=== PATIENT | female | born 1935 | race Caucasian/White ===

== ENCOUNTER → 2017-03-11 | Outpatient (CLI) | payer OTHER ==
[~2017-03-11] MED LIST: ALLOPURINOL; CITRACIL PO; FERROUS SULFATE; MELATONIN; METOPROLOL SUCC25 MG PO; MULTIVITAMIN PO; ONE DAILY1 EAC1 PO; TYLENOL EXTRA500 MG PO; Z CITRACAL; Z.0.COLACE100 MG PO; Z.0.NORCO 7.5-3251 E; Z.0.OXYBUTYNIN CHLOR PO; Z.1.AMOXICILLIN500 M PO; [UNRECOGNIZED DRUG - OTHER]; [UNRECOGNIZED DRUG - OTHER]; [UNRECOGNIZED DRUG - OTHER] PO
--- NOTE | 2017-03-11 14:51 | Diagnostic Imaging Report ---
PROCEDURE: Frontal and lateral views of the chest. COMPARISON: 06/30/15 INDICATIONS: COUGH, FLU FINDINGS: Lines/tubes: None. Lungs: The lungs are well inflated and clear. There is no evidence of pneumonia or pulmonary edema. Pleura: There is no pleural effusion or pneumothorax. Heart and mediastinum: The heart and the mediastinum are normal. Aorta is mildly calcified and tortuous. Bones: No acute bony abnormality. IMPRESSION: No acute cardiopulmonary disease. No change from prior exam. Dictated by: Martin Peck M.D. on 03/11/2017 at 14:59 Electronically approved by: Martin Peck M.D. on 03/11/2017 at 14:59
== END ==
LOC: RAD 14:20
PROVIDERS: ATTEND Internal Medicine
DX: J20.9 Acute bronchitis, unspecified (principal)
CPT/HCPCS: 71020

== ENCOUNTER 2017-07-19 15:53 | Emergency (ER) | payer OTHER ==
[~2017-07-19] VITALS: Ht 160 cm; Wt 75.3 kg
--- OUTSIDE RECORDS SUMMARY | 2017-07-19 15:57 | XMS REPORT ---
Author Author [facility] Address Unknown Phone Unavailable Care Team Providers Care Manufacturing Technology Professor Name Role Phone JOSÉ MIGUEL ORTIZ Unavailable Unavailable Problems This patient has no known problems. Allergies, Adverse Reactions, Alerts This patient has no known allergies or adverse reactions. Medications This patient has no known medications. Results Test Description Test Time Test Comments Text Results Atomic Results Result Comments CHEST 2 VIEWS [place] [address] Patient Name: ADE BUCK MR #: [id number] : 1935 Age/Sex: 81/F Req #: [id number] Adm Physician: Ordered by: JOSÉ MIGUEL ORTIZ MD Report #: [id number] Location: RAD Room/Bed: Procedure: [id number] DX/CHEST 2 VIEWS Exam Date: 03/11/17 Exam Time: 1440 REPORT STATUS: Signed PROCEDURE: Frontal and lateral views of the chest. COMPARISON: 06/30/15 INDICATIONS: COUGH, FLU FINDINGS: Lines/tubes: None. Lungs: The lungs are well inflated and clear. There is no evidence of pneumonia or pulmonary edema. Pleura: There is no pleural effusion or pneumothorax. Heart and mediastinum: The heart and the mediastinum are normal. Aorta is mildly calcified and tortuous. Bones: No acute bony abnormality. IMPRESSION: No acute cardiopulmonary disease. No change from prior exam. Dictated by: Martin eVntura M.D. on 03/11/2017 at 14:59 Electronically approved by: Martin Ventura M.D. on 03/11/2017 at 14:59 Dictated By: MARTIN VENTURA MD [id number] Transcribed By: SUZANNE on 03/11/17 2882 COPY TO: JOSÉ MIGUEL ORTIZ MD
--- NOTE | 2017-07-19 18:03 | Diagnostic Imaging Report ---
History: Fall, pain Comparison studies:None Technique: Axial images were obtained from the brain, face and cervical spine. Coronal and sagittal reconstructions obtained from the axial data. Intravenous contrast: None Findings: Head CT: Scalp/skull: No abnormalities. No fractures, blastic or lytic lesions. Extra-axial spaces: No masses. No fluid collections. Brain sulci: Appropriate for age. Ventricles: Normal in size and configuration. No hydrocephalus. Parenchyma: Scattered and confluent hypodensities of the periventricular and deep white matter. Small chronic lacunar infarcts at the right striatocapsular region, left caudate head and left thalamus. No masses, hemorrhage, acute or chronic cortical vascular insults. Sellar/suprasellar region: No abnormalities Craniocervical junction: Patent foramen magnum. No Chiari one malformation. Atherosclerotic calcifications of the carotid siphons and right intradural vertebral artery. Maxillofacial CT: Soft tissues: Right premaxillary and preseptal soft tissue swelling. Bones: Right orbital floor fracture as described below, no other fractures are seen. Orbits: Acute mildly inferior displaced fracture of the right orbital floor with involvement of the infraorbital canal and herniated extraconal fat. Anterior orbital rim appears intact Normal appearance of the extraocular muscles. Bilateral cataract surgery changes. Paranasal sinuses: Air-fluid level at the right maxillary sinus, likely. The remaining paranasal sinuses are clear. Cervical spine CT: Fractures: None. Soft tissues: No gross abnormalities. Atlantoaxial articulation: Degenerative changes without acute abnormality. Alignment: Normal lordosis. No scoliosis. Cervicomedullary junction: No abnormalities. The foramen magnum is patent. Vertebrae: No infection or neoplasm. Degenerative changes: At C3-4, left facet hypertrophy results in moderate left foraminal narrowing. At C4-5, left uncinate process and facet hypertrophy results in moderate left foraminal narrowing. At C5-6 bilateral uncinate process hypertrophy and left facet hypertrophy results in mild canal stenosis, mild right and severe left foraminal narrowing. Disc degeneration with decreased intervertebral space and sclerotic changes from C5 through C7. Incidental findings: Not. Impression: Head CT: 1. No acute intracranial abnormality.. 2. Moderate chronic microvascular ischemic changes of the white matter. Facial CT: 1. Small right orbital floor blowout fracture with mild herniated extraconal fat and hemorrhagic opacification of the maxillary sinus. Normal appearance of the extraocular muscle musculature. 2. Right premaxillary and preseptal soft tissue swelling. Cervical spine CT: 1. No acute cervical abnormalities. 2. Cannot exclude ligament, spinal cord and or vascular abnormalities on the basis of this examination. Signed by: DR Joe Joseph M.D. on 07/19/2017 5:59 PM
--- NOTE | 2017-07-19 18:19 | Diagnostic Imaging Report ---
PROCEDURE:X-RAY RIGHT ELBOW, COMPLETE COMPARISON:None. INDICATIONS:FALL, RIGHT ELBOW PAIN FINDINGS: Generalized osteopenia, which limits evaluation of the bony structures. Linear lucency traversing the medial epicondyle of the distal humerus, with cortical step-off . A linear lucency is also noted in the lateral view extending from the anterior to the posterior aspect of the distal humerus, with cortical step-off, consistent with an acute, minimally displaced fracture. Marked elevation of the anterior fat-pad. Other bony structures are intact. Mild soft tissue swelling in the distal humerus. No lytic or blastic lesions. CONCLUSION: Acute, oblique minimally displaced fracture of the distal humerus, at the level of the epicondyles Associated likely effusion/hemarthrosis Ye Diaz M.D. Dictated by: Ye Diaz M.D. on 07/19/2017 at 18:20 Electronically approved by: Ye Diaz M.D. on 07/19/2017 at 18:20
[2017-07-19] MEDS ORDERED: TETANUS/DIPHTHERIA TOX ADULT 0.5 ML SYR IM ONE (19:00)
[2017-07-19] MEDS ORDERED: BACITRACIN ZINC 0.9GM TP ONE (19:00)
--- NOTE | 2017-07-19 19:38 | Diagnostic Imaging Report ---
EXAMINATION: CHEST SINGLE (PORTABLE) INDICATION: \S\fall \S\[id number] \S\[id number] COMPARISON: None FINDINGS: AP view TUBES and LINES: None. LUNGS: Lungs are well inflated. Lungs are clear. There is no evidence of pneumonia or pulmonary edema. PLEURA: No pleural effusion or pneumothorax. HEART AND MEDIASTINUM: The cardiomediastinal silhouette is unremarkable. Aorta is mildly calcified and tortuous. BONES AND SOFT TISSUES: No acute osseous lesion. Soft tissues are unremarkable. UPPER ABDOMEN: No free air under the diaphragm. IMPRESSION: No acute thoracic abnormality. Signed by: Dr. Martin Peck MD on 07/19/2017 7:34 PM
[2017-07-19 21:32] VITALS: BP 139/95
[2017-07-19] MEDS ORDERED: TYLENOL WITH C1 EACH PO (21:32)
== END 2017-07-19 21:55 | disposition home or self-care (01) ==
LOC: ER 15:53
DX: S42.411A Displaced simple supracondylar fracture without intercondylar fracture of right humerus, initial encounter for closed fracture (principal); S01.111A Laceration without foreign body of right eyelid and periocular area, initial encounter; S51.811A Laceration without foreign body of right forearm, initial encounter; W01.10XA Fall on same level from slipping, tripping and stumbling with subsequent striking against unspecified object, initial encounter; Y92.481 Parking lot as the place of occurrence of the external cause; S02.31XA Fracture of orbital floor, right side, initial encounter for closed fracture; Z23 Encounter for immunization; Z87.891 Personal history of nicotine dependence
CPT/HCPCS: 70450; 70486; 71045; 72125; 90471; 90714; 99284

== ENCOUNTER → 2017-10-25 | Day surgery (SDC) | payer OTHER ==
[2017-10-21 15:02] LABS: BASOPHILS % 0.7 % (0.0-1.0); EOSINOPHILS # (AUTO) 0.2 (0.0-0.4); EOSINOPHILS % 4.1 % (0.0-6.0); HEMATOCRIT 33.1 % (34.2-44.1); HEMOGLOBIN 11.2 g/dL (12.0-16.0); LYMPHOCYTES # (AUTO) 1.2 (1.0-3.2); LYMPHOCYTES % 21.1 % (18.0-39.1); MEAN CORPUSCULAR HEMOGLOBIN 30.9 pg (28-32); MEAN CORPUSCULAR HGB CONC 33.8 g/dL (31-35); MEAN CORPUSCULAR VOLUME 91.4 fL (81-99); MONOCYTES # (AUTO) 0.6 (0.2-0.8); MONOCYTES % 10.4 % (4.4-11.3); NEUTROPHILS # (AUTO) 3.7 (2.1-6.9); NEUTROPHILS % 63.4 % (38.7-80.0); PLATELET COUNT 206 x10e3/uL (140-360); RED BLOOD COUNT 3.62 x10e6/uL (3.6-5.1); RED CELL DISTRIBUTION WIDTH 12.6 % (11.7-14.4)
[~2017-10-25] MED LIST changes: +AMLODIPINE BES2.5 MG PO; +CEFTRIAXONE SOD 1 GM VIAL ONE; +CITRACAL + D E1 EACH PO; +DEXAMETHASONE SOD PHOS INJ 4 MG/ML VIAL IV ONE; +EPHEDRINE SULFATE INJ 50 MG/10 ML SYR IV ONE; +FENTANYL CITRATE/PF 100MCG/2 ML INJ ONE; +IOPAMIDOL 300MG/ML 50ML INFUS..BTL IV ONE; +LIDOCAINE HCL 2% LOCAL INJ 5 ML SDV VIAL INJ ONE; +ONDANSETRON HCL INJ 2 MG/ML VIAL IV ONE; +PROPOFOL IV EMULSION 10 MG/ML 20 ML VIAL IV ONE; +SEVOFLURANE INHAL SOLN 250 ML PEN BTL INH ONE; +TYLENOL WITH C1 EACH PO; +VITAMIN B-121000 MCG PO; +VITAMIN D3400 UNI1 PO
--- NOTE | 2017-10-25 09:03 | Diagnostic Imaging Report ---
PROCEDURE:X-RAY ABDOMEN - KUB COMPARISON:01/16/2016. INDICATIONS:CALCULUS OF KIDNEY FINDINGS: No suspicious calcifications project over the renal shadows. Multiple left pelvic calcifications are again noted which likely reflect phleboliths. Bilateral pelvic sidewall surgical clips along with right upper quadrant surgical clips. Bowel gas pattern is nonobstructive. Round-crescentic calcifications project over the left upper quadrant which may reflect a splenic artery aneurysm. Regional skeletal structures are intact with partial visualization of left hip arthroplasty. Associated degenerative changes of the left sacroiliac joint. Mild lumbar spine degenerative disc changes. CONCLUSION: No plain film evidence of urolithiasis. Nonobstructive bowel gas pattern. 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 CT angiography of the abdomen and pelvis may be obtained for further evaluation. Dictated by: Vidal Mann M.D. on 10/25/2017 at 7:17 Electronically approved by: Vidal Mann M.D. on 10/25/2017 at 7:17
--- NOTE | 2017-12-20 15:53 | Operative Report ---
DATE OF PROCEDURE: October 25, 2017 PREOPERATIVE DIAGNOSIS: Left nephrolithiasis. POSTOPERATIVE DIAGNOSIS: Left nephrolithiasis. PROCEDURE PERFORMED: 1. Staged left-sided extracorporeal shockwave lithotripsy. 2. Supervision of fluoroscopy. No radiologist present. ANESTHESIA: General. COMPLICATIONS: None. CLINICAL SUMMARY: Renny Espino is an 82-year-old woman with nephrolithiasis. She is brought for management. She is aware of the risks of bleeding, infection, injury to adjacent structures, need for additional procedures and elected proceed. OPERATIVE PROCEDURE IN DETAIL: Informed consent was verified. Renny Espino was properly identified and taken to the operating room and placed on the lithotripsy table in supine position. Anesthesia was uneventfully begun. The patient's upper caliceal 6 mm stone and lower caliceal 5 mm stones were localized with biplanar fluoroscopy. Total of 2500 shocks were delivered splitting them among the 2 stones. The patient was then uneventfully reversed from anesthesia and taken to the recovery room in stable condition. No complications during the procedure. She tolerated the procedure well. Plans will be to return the patient to the operating room in several weeks to perform a right versus left ESWL with possible cystoscopy and retrogrades at that same time. Job#: [id number]
--- OUTSIDE RECORDS SUMMARY | 2017-12-21 23:57 | XMS REPORT | Continuity of Care Document ---
Author Author [facility] Organization [facility] Address [address] [place] [address] Phone Unavailable Care Team Providers Care Observation Nurse Name Role Phone JOSÉ MIGUEL ORTIZ MD PCP Insurance Providers Guarantor Renny Espino Address [address] [address] Email PTDECLINED Payer [facility] Policy Number [id number] Subscriber's Name Darell Espinoan Kings Relationship 18 Self / Same As Patient Group Number [id number] Group Name [facility] - Medicare Advantage Divis Effective Date 17 Advance Directives Directive Response Recorded Date/Time Does the patient have an advance directive? Yes 12/29/11 4:19pm If yes, is advance directive on file with [facility]? Yes 07/19/17 5:00pm If not on file with [facility] will patient provide a copy? No 07/19/17 5:00pm Do you have a Directive to Physician? No 07/19/17 5:00pm Do you have a Medical Power of Paratransit Operator? No 07/19/17 5:00pm Do you have an out of hospital Do Not Resuscitate Order? No 07/19/17 5:00pm Do you have any special needs we should be aware of? No 07/19/17 5:00pm Do you have a support person here with you today? Yes 07/19/17 5:00pm Did patient receive Notice of Privacy Practices? Yes 07/19/17 5:00pm Did patient receive patient rights and responsibilities? Yes 07/19/17 5:00pm Problems Medical Problem Onset Date Status Contusion of right knee Unknown Acute Medications Current Home Medications Medication Dose Units Route Directions Days Qty Instructions Start Date Acetaminophen (Tylenol Extra Strength) 500 Mg Tablet 1,000 Mg Oral Daily Acetaminophen With Codeine (Tylenol With Codeine #3 Tablet) 1 Each Tablet 300 Mg Oral Every 6 Hours as needed for Pain Citracil 1 Tab Oral Daily Metoprolol Succinate 25 Mg Tab.er.24h 25 Mg Oral Daily Multivitamin (One Daily) 1 Each Tablet 1 Tab Oral Daily Past Home Medications Medication Directions Ordered Status Allopurinol , 100 Mg Daily Discontinued Amoxicillin Trihydrate (Amoxicillin) 500 Mg Capsule, 500 Mg Oral Twice A Day Discontinued Calcium Cmb 2/D3/Min Cmb34/Gen (Citracal + Bone Density Tablet) 1 Each Tablet, Discontinued Docusate Sodium (Colace) 100 Mg Capsule, 100 Mg Oral Every 6-8 Hours as needed Discontinued Ferrous Sulfate , Discontinued Hydrocodone Bit/Acetaminophen ([place] 7.5-325 Tablet) 1 Each Tablet, Discontinued Hydrocodone Bit/Acetaminophen (Vicodin Hp 10-660 Mg Tablet) 1 Each Tablet, 1 Tab Oral Every 4-6 Hours as needed Discontinued Melatonin , Discontinued Multivitamin , Oral Daily Discontinued Oxybutynin Chloride 5 Mg Tablet, 5 Mg Oral Daily Discontinued Softner , 100 Mg Discontinued Social History Social History Problem Response Recorded Date/Time Onset Date Status Hx Psychiatric Problems No 12/29/2011 4:19pm Not Applicable Not Applicable Smoking Status Start Date Stop Date Never Smoker Hospital Discharge Instructions No hospital discharge instruction information available. Plan of Care Discharge Date 07/19/17 9:55pm Disposition HOME, SELF-CARE Condition at Discharge Stable Instructions/Education Provided Splint/Cast Splint/Cast Care Fractures - Humerus Fractures - Orbital RICE Therapy Prescriptions See Medication Section Referrals ANGELY KING MD Order Date: Call for an appointment Address: [address] [place] [address] [address] [place], [place] [id number] Additional Instructions/Education Keep your injured extremity elevated above your heart, use ice packs for 15 to 20 minutes every 1-2 hours. This will help decrease pain and swelling. Take Regular Tylenol every 4-6 hours as needed for pain. If prescribed pain medication on discharge, take the pain medication as prescribed and adhere to the warnings given for pain medication such as no swimming, driving operating heavy machinery, drinking or mixing with other medications that can interact with the narcotic. Follow up with the Orthopedic referral physician listed, call next business day to schedule your follow-up appointment. Return to the Emergency Department for any shortness of breath, increased pain injured extremity, discoloration of extremity, decreased circulation of extremity, or any new concerns. You must follow up with your [facility] due to the orbital fracture. I gave you an Orthopedic Physician for the elbow fracture to follow up with upon making your appointment. Functional Status No functional status information available. Allergies, Adverse Reactions, Alerts Allergen Type Severity Reaction Status Last Updated NSAIDS (Non-Steroidal Anti-Inflamma Allergy Unknown Active 01/16/16 Morphine Allergy Unknown Active 01/16/16 Aspirin Allergy Mild HIVES Active 09/01/09 ANTIHISTAMINES Allergy Unknown Active 01/16/16 ANTIHISTIMINES Allergy Unknown Active 07/19/17 PLASTIC TAPE Allergy Mild RASH Active 09/01/09 Immunizations No immunization information available. Vital Signs Acute Vital Signs Vital Response Date/Time Temperature (Fahrenheit) 98.2 degrees F (97.6 - 99.5) 07/19/2017 9:32pm Pulse Pulse Rate (adult) 74 bpm (60 - 90) 07/19/2017 9:32pm Respiratory Rate 19 bpm (12 - 24) 07/19/2017 9:32pm Blood Pressure 139/95 mm Hg 07/19/2017 9:32pm Height 5 ft 3 in 07/19/2017 4:34pm Weight 166 lb 07/19/2017 4:34pm Body Mass Index 29.4 kg/m^2 07/19/2017 4:34pm Results No relevant diagnostic test, laboratory data and/or discharge summary information available. Procedures Procedure Status Date Provider(s) X-ray of chest, two views Active 03/11/17 JOSÉ MIGUEL ORTIZ MD Computed tomography of brain without radiopaque contrast Active 07/19/[address] maxillofacial area wo contrast Active 07/19/17 AZEB ROSE MD Computed tomography of cervical spine without contrast Active 07/19/17 AZEB ROSE MD Encounters Encounter Location Arrival/Admit Date Discharge/Depart Date Attending Provider Departed Emergency Room [facility] 07/19/17 3:53pm 9:55pm AZEB ROSE MD Registered Clinic [facility] 03/11/17 2:20pm JOSÉ MIGUEL ORTIZ MD
== END | disposition home or self-care (01) ==
LOC: OR 05:01
PROVIDERS: ATTEND Urology
DX: N20.0 Calculus of kidney (principal); I10 Essential (primary) hypertension; E78.5 Hyperlipidemia, unspecified; M19.019 Primary osteoarthritis, unspecified shoulder; Z88.6 Allergy status to analgesic agent; Z88.8 Allergy status to other drugs, medicaments and biological substances; Z91.048 Other nonmedicinal substance allergy status; Z01.810 Encounter for preprocedural cardiovascular examination; Z01.812 Encounter for preprocedural laboratory examination; Z90.710 Acquired absence of both cervix and uterus; Z96.642 Presence of left artificial hip joint; Z96.651 Presence of right artificial knee joint; Z85.42 Personal history of malignant neoplasm of other parts of uterus; Z87.891 Personal history of nicotine dependence
CPT/HCPCS: 36415; 50590; 74018; 85025; 93005; J0696; J1100; J2001; J2405

== ENCOUNTER → 2017-11-18 | Day surgery (SDC) | payer OTHER ==
[~2017-11-18] MED LIST changes: +ATROPINE SULFATE 1 MG/ML VIAL ONE; +DESFLURANE 240 ML BTL INH ONE; -DEXAMETHASONE SOD PHOS INJ 4 MG/ML VIAL IV ONE; +DEXAMETHASONE SOD PHOS INJ 4 MG/ML VIAL ONE; -EPHEDRINE SULFATE INJ 50 MG/10 ML SYR IV ONE; +EPHEDRINE SULFATE INJ 50 MG/10 ML SYR ONE; +LIDOCAINE HCL 2% JELLY 5 ML TUBE ONE; -LIDOCAINE HCL 2% LOCAL INJ 5 ML SDV VIAL INJ ONE; -ONDANSETRON HCL INJ 2 MG/ML VIAL IV ONE; +ONDANSETRON HCL INJ 2 MG/ML VIAL ONE; -PROPOFOL IV EMULSION 10 MG/ML 20 ML VIAL IV ONE; +PROPOFOL IV EMULSION 10 MG/ML 20 ML VIAL ONE; -SEVOFLURANE INHAL SOLN 250 ML PEN BTL INH ONE
[2017-11-18 08:50] VITALS: BP 132/65
--- NOTE | 2017-11-18 08:52 | Diagnostic Imaging Report ---
ABDOMEN-1VIEW (KUB) Clinical history: Preoperative Technique: AP view abdomen Comparison: 10/25/2017. Findings: Overlying bowel gas obscures visualization of stones. There are three 2-3 mm calcifications overlying the left lower pole kidney. Additional 3 mm calcification projects over the right mid kidney and 5 mm calcification projects over the right lower pole kidney. No calcifications projecting over the expected location of the ureters or bladders. Pelvic phleboliths are noted. Nonobstructive bowel gas pattern. Status post cholecystectomy. Surgical clips project over the pelvis bilaterally. Partially seen left hip arthroplasty. No acute bony findings. Degenerative changes of the lower lumbar spine. Impression: Bowel gas partially limits radiographic evaluation for stones. Bilateral calcifications projecting over the kidneys, measuring up to 3 mm on the left and 5 mm on the right, which may represent stones. Signed by: Dr. Feli Lucas MD on 11/18/2017 8:08 AM
--- NOTE | 2018-01-12 01:07 | Operative Report ---
DATE OF PROCEDURE: November 18, 2017 PREOPERATIVE DIAGNOSIS: Left nephrolithiasis. POSTOPERATIVE DIAGNOSIS: Left nephrolithiasis. OPERATIONS PERFORMED 1. Staged left-sided extracorporeal shock wave lithotripsy. 2. Supervision of fluoroscopy. No radiologist present. ANESTHESIA: General. COMPLICATIONS: None. CLINICAL SUMMARY: Renny Espino is an 82-year-old woman with bilateral nephrolithiasis, who is brought for staged procedure. She is aware of the risks of bleeding, infection, injury to adjacent structures, need for additional procedures, and elected to proceed. OPERATIVE PROCEDURE IN DETAIL: Informed consent was verified. Renny Espino was properly identified, taken to operating room, placed on the lithotripsy table in supine position. Anesthesia was uneventfully begun. The patient had a prior left ESWL, but has residual, but smaller stones now present in the upper pole and lower pole. We localized both stone regions with biplanar fluoroscopy and split the total of 3000 shocks between the 2 stone regions. Additional fragmentation was noted. The patient was then uneventfully reversed from anesthesia and taken to recovery room in stable condition. There were no complications to the procedure. She tolerated the procedure well. Explicit postoperative instructions were given. Will plan on returning the patient to the operating room. At which point in time, she will hopefully undergo a right ESWL, as well as cystoscopy and retrograde ureteropyelography. Job#: [id number] CQ cc:JOSÉ MIGUEL ORTIZ MD
== END | disposition home or self-care (01) ==
LOC: OR 05:15
PROVIDERS: ATTEND Urology
DX: N20.0 Calculus of kidney (principal); I10 Essential (primary) hypertension; I45.10 Unspecified right bundle-branch block; I49.9 Cardiac arrhythmia, unspecified; Z88.6 Allergy status to analgesic agent; Z88.8 Allergy status to other drugs, medicaments and biological substances; Z91.048 Other nonmedicinal substance allergy status; Z85.42 Personal history of malignant neoplasm of other parts of uterus
CPT/HCPCS: 50590; 74018; J0461; J0696; J1100; J2001; J2405

== ENCOUNTER → 2017-12-30 | Day surgery (SDC) | payer OTHER ==
[2017-12-26 17:20] LABS: BASOPHILS % 0.6 % (0.0-1.0); EOSINOPHILS # (AUTO) 0.2 (0.0-0.4); EOSINOPHILS % 2.9 % (0.0-6.0); HEMATOCRIT 36.1 % (34.2-44.1); HEMOGLOBIN 12.1 g/dL (12.0-16.0); LYMPHOCYTES # (AUTO) 1.9 (1.0-3.2); LYMPHOCYTES % 28.5 % (18.0-39.1); MEAN CORPUSCULAR HEMOGLOBIN 30.4 pg (28-32); MEAN CORPUSCULAR HGB CONC 33.5 g/dL (31-35); MEAN CORPUSCULAR VOLUME 90.7 fL (81-99); MONOCYTES # (AUTO) 0.6 (0.2-0.8); MONOCYTES % 9.1 % (4.4-11.3); NEUTROPHILS % 58.6 % (38.7-80.0); PLATELET COUNT 230 x10e3/uL (140-360); RED BLOOD COUNT 3.98 x10e6/uL (3.6-5.1); RED CELL DISTRIBUTION WIDTH 12.5 % (11.7-14.4)
[~2017-12-30] MED LIST changes: -ATROPINE SULFATE 1 MG/ML VIAL ONE; -CEFTRIAXONE SOD 1 GM VIAL ONE; -DESFLURANE 240 ML BTL INH ONE; -EPHEDRINE SULFATE INJ 50 MG/10 ML SYR ONE; -FENTANYL CITRATE/PF 100MCG/2 ML INJ ONE; +GENTAMICIN 80MG/NS 100 ML 100 ML IV ONE; -IOPAMIDOL 300MG/ML 50ML INFUS..BTL IV ONE; +IOPAMIDOL 610MG/1ML 300 MG/ML VIAL IV ONE; -LIDOCAINE HCL 2% JELLY 5 ML TUBE ONE; +LIDOCAINE HCL 2% LOCAL INJ 5 ML SDV VIAL INJ ONE; +SEVOFLURANE INHAL SOLN 250 ML PEN BTL ONE
--- NOTE | 2017-12-30 08:12 | Diagnostic Imaging Report ---
ABDOMEN-1VIEW (KUB) Clinical history: Pre-Op Technique: AP view abdomen Comparison: KUB 11/18/2017. Findings: Bowel gas partially obscures visualization of the kidneys. There are multiple bilateral renal calcifications, measuring up to 5 mm in the left upper pole, 4 mm in the left lower pole, 4 mm in the right lower pole, and 1-3 mm scattered throughout the right kidney. Some of the calcifications were obscured on KUB from 11/18/2017. No calcifications projecting over the expected location of the ureters or bladders. Pelvic phleboliths are noted. Nonobstructive bowel gas pattern. Abundant stool throughout the colon. Status post cholecystectomy. Surgical clips project over the pelvis bilaterally. Partially seen left hip arthroplasty. No acute bony findings. Degenerative changes of the lower lumbar spine. Impression: Bilateral calcifications projecting over the kidneys, measuring up to 5 mm on the left and 4 mm on the right, which may represent stones. Abundant stool throughout the colon. Signed by: Dr. Feli Lucas MD on 12/30/2017 8:08 AM
[2017-12-30 08:30] VITALS: BP 159/85
--- NOTE | 2018-02-08 01:24 | Operative Report ---
DATE OF PROCEDURE: December 30, 2017 PREOPERATIVE DIAGNOSES: 1. Right nephrolithiasis. 2. Microscopic hematuria. POSTOPERATIVE DIAGNOSES: 1. Right nephrolithiasis. 2. Microscopic hematuria. 3. Urethral stenosis. 4. Atrophic (senile) vaginitis. OPERATIONS PERFORMED: Note these were all staged procedures as part of a multistage, multistep process of managing the patient's urolithiasis. 1. Right-sided extracorporeal shock wave lithotripsy (separate procedure performed for the right nephrolithiasis). 2. Cystourethroscopy with bilateral ureteral catheterization and retrograde ureteropyelography (separate procedure performed for the microhematuria). 3. Interpretation of retrograde ureteropyelography. 4. Supervision of fluoroscopy, no radiologist present. 5. Pelvic examination under anesthesia. 6. Cystourethroscopy with calibration and dilation of urethral stenosis (separate procedure performed for the urethral stenosis). ANESTHESIA: General. COMPLICATIONS: None. CLINICAL SUMMARY: Renny Espino is an 82-year-old woman who underwent ESWL procedure twice to the left kidney recently. The patient is brought to the operating room for management of her right-sided stone. She is aware of the risks of bleeding, infection, injury to adjacent structures, need for additional procedures, and elected to proceed. OPERATIVE PROCEDURE IN DETAIL: Informed consent was verified. Renny Espino was properly identified, taken to the operating room, and placed on the lithotripsy table in supine position. Anesthesia was uneventfully begun. The patient's right nephrolithiasis specifically in the upper pole zaynab and the mid zaynab was localized with biplanar fluoroscopy. Total of 3000 shocks were distributed among them with some degree of fragmentation noted. The patient was carefully and gently repositioned in dorsal lithotomy position with all pressure points well padded. Her genitalia were prepared and draped in usual sterile fashion. The 22.5-Lao cystoscope sheath was attempted to be placed into the patient's urethra, however, the urethra was stenosed. The urethra was calibrated to approximately 16-Lao in size and was dilated progressively to 28-Lao in size. This last sound was held in place for several minutes to allow dilation. The cystoscope sheath was then reintroduced uneventfully. Panendoscopy of the urinary bladder revealed no suspicious mucosal lesions, no tumors, no stones, and no diverticula. Normally positioned and configured ureteral orifices were identified. A ureteral catheter was used to cannulate each ureter, and retrograde ureteral pyelograms were performed. Interpretation of retrograde ureteropyelography: Contrast was instilled in retrograde fashion bilaterally. The left side was unremarkable. We really could not visualize the small stones once contrast was injected. On KUB, the patient had small residual fragments in the upper pole zaynab and lower pole zaynab on left hand side. On the right hand side, there were filling defects located in the region of where the stones were fragmented. These filling defects correspond to stone debris as well as blood clots. Nevertheless, there was no hydronephrosis, and unobstructed drainage was observed fluoroscopically. The patient was again re-examined. It revealed some trabeculations, but no suspicious lesions. The patient's bladder was drained. The cystoscope was withdrawn. Pelvic examination under anesthesia revealed severely atrophic vaginitis with an extremely foreshortened vagina due to prior surgery. No abnormal palpable pelvic masses were appreciated. There were no obvious mucosal lesions. The patient was then uneventfully reversed from anesthesia and taken to recovery room in stable condition. There were no complications to the procedure. She tolerated the procedure well. Explicit postop instructions were given. Will follow the patient up in the office. Job#: [id number] cc:JOSÉ MIGUEL ORTIZ MD
== END | disposition home or self-care (01) ==
LOC: OR 05:10
PROVIDERS: ATTEND Urology
DX: N20.0 Calculus of kidney (principal); N35.92 Unspecified urethral stricture, female; N95.2 Postmenopausal atrophic vaginitis; N32.89 Other specified disorders of bladder; I10 Essential (primary) hypertension; Z88.6 Allergy status to analgesic agent; Z88.8 Allergy status to other drugs, medicaments and biological substances; Z01.812 Encounter for preprocedural laboratory examination; Z87.891 Personal history of nicotine dependence
CPT/HCPCS: 36415; 50590; 52281; 74018; 85025; J1100; J1580; J2001; J2405; Q9967

== ENCOUNTER 2018-05-25 06:38 | Observation (INO) | payer MEDICARE, OTHER ==
[2018-05-23 15:36] LABS: BASOPHILS % 0.8 % (0.0-1.0); EOSINOPHILS # (AUTO) 0.1 (0.0-0.4); EOSINOPHILS % 1.9 % (0.0-6.0); LYMPHOCYTES % 20.4 % (18.0-39.1); MEAN CORPUSCULAR HEMOGLOBIN 29.9 pg (28-32); MEAN CORPUSCULAR HGB CONC 33.3 g/dL (31-35); MEAN CORPUSCULAR VOLUME 89.7 fL (81-99); MONOCYTES # (AUTO) 0.4 (0.2-0.8); MONOCYTES % 9.2 % (4.4-11.3); NEUTROPHILS # (AUTO) 3.2 (2.1-6.9); NEUTROPHILS % 67.5 % (38.7-80.0); PLATELET COUNT 233 x10e3/uL (140-360); RED BLOOD COUNT 3.68 x10e6/uL (3.6-5.1); RED CELL DISTRIBUTION WIDTH 12.5 % (11.7-14.4)
[2018-05-23 15:48] LABS: INR 0.8; PROTHROMBIN TIME 11.5 seconds (11.9-14.5)
[2018-05-23 15:49] LABS: PARTIAL THROMBOPLASTIN TIME 29.8 seconds (23.8-35.5)
[2018-05-23 15:55] LABS: ANION GAP 11.5 mmol/L (8-16); CALCIUM 9.4 mg/dL (8.4-10.2); CREATININE, SERUM 1.05 mg/dL (0.57-1.11); POTASSIUM 3.5 mmol/L (3.5-5.1)
--- NOTE | 2018-05-23 16:38 | Diagnostic Imaging Report ---
EXAMINATION: CHEST 2 VIEWS INDICATION: Right L4-L5 neural foraminal narrowing. Preop chest x-ray for lower back surgery. COMPARISON: Chest x-ray 07/19/2017. FINDINGS: PA and lateral views TUBES and LINES: None. LUNGS: Lungs are well inflated. Calcified granuloma in the left lung base. Lungs are clear. There is no evidence of pneumonia or pulmonary edema. PLEURA: No pleural effusion or pneumothorax. HEART AND MEDIASTINUM: The cardiomediastinal silhouette is unremarkable. There are atherosclerotic calcifications within the aorta. Calcified bilateral hilar lymph nodes. BONES AND SOFT TISSUES: No acute osseous lesion. Soft tissues are unremarkable. UPPER ABDOMEN: No free air under the diaphragm. There are cholecystectomy clips. IMPRESSION: No acute thoracic abnormality. Signed by: Dr. Freeman Vaughn M.D. on 05/23/2018 4:35 PM
[~2018-05-25] VITALS: Ht 160 cm; Wt 68.0 kg
[~2018-05-25 06:38] MED LIST changes: +BACITRACIN 50,000 UNIT VIAL ONE; +BUPIVACAINE 0.5%/EPI 30 ML SDV INJ ONE; -DEXAMETHASONE SOD PHOS INJ 4 MG/ML VIAL ONE; +GELATIN SPONGE 12-7MM ONE; -GENTAMICIN 80MG/NS 100 ML 100 ML IV ONE; -IOPAMIDOL 610MG/1ML 300 MG/ML VIAL IV ONE; -LIDOCAINE HCL 2% LOCAL INJ 5 ML SDV VIAL INJ ONE; -ONDANSETRON HCL INJ 2 MG/ML VIAL ONE; -PROPOFOL IV EMULSION 10 MG/ML 20 ML VIAL ONE; -SEVOFLURANE INHAL SOLN 250 ML PEN BTL ONE; +THROMBIN FOR SOLN 5,000 UNIT VIAL ONE
[2018-05-25] MEDS ORDERED: CEFAZOLIN SOD 1 GM/NS 50ML 50 ML IV ONE (07:16)
[2018-05-25] MEDS ORDERED: ALENDRONATE SOD70 MG (07:44)
[2018-05-25] MEDS ORDERED: ULTRAM50 MG PO (07:44)
[2018-05-25] MEDS ORDERED: SODIUM POLYSTY454 GM (07:44)
[2018-05-25] MEDS ORDERED: ACETAMINOPHEN 325 MG TAB PO PRN (10:15)
[2018-05-25] MEDS ORDERED: TRAMADOL HCL 50 MG TAB PO PRN (10:15)
[2018-05-25] MEDS ORDERED: CARISOPRODOL 350 MG TAB PO PRN (10:15)
[2018-05-25] MEDS ORDERED: HYDROMORPHONE 2MG/ML 2 MG/ML ML IV PRN (10:15)
[2018-05-25] MEDS ORDERED: OXYCODONE/ACETAMINOPHEN 5-325 1 EACH TABLET PO PRN (10:15)
[2018-05-25] MEDS ORDERED: CEPACOL SORE THROAT LOZENGES PO PRN (10:15)
[2018-05-25] MEDS ORDERED: PROMETHAZINE HCL (IM) 25 MG/ML VIAL IM PRN (10:15)
[2018-05-25] MEDS ORDERED: MAGNESIUM/ALUMINUM/SIMETHICONE 30 ML UDC PO PRN (10:15)
[2018-05-25] MEDS ORDERED: ONDANSETRON HCL INJ 2MG/ML 2ML 2 MG/ML VIAL IV PRN (10:15)
[2018-05-25] MEDS ORDERED: MEPERIDINE HCL INJ 25 MG/ML VIAL ONE (10:22)
--- NOTE | 2018-05-25 11:04 | Diagnostic Imaging Report ---
Exam: Crosstable portable lateral view of the lumbar spine dated 05/25/2018 at 8:55 AM History: X-ray for surgical level Comparison: None available Findings: Single crosstable lateral view shows 2 metallic wires with one overlying the superior aspect of the L4 vertebral body and the other overlying inferior aspect of the L4 vertebral body. Signed by: Dr. Chiki Ocampo DO on 05/25/2018 11:01 AM
--- NOTE | 2018-05-25 11:06 | Diagnostic Imaging Report ---
Exam: Single crosstable portable lateral view of the lumbar spine dated 05/25/2018 at 9:13 AM. History: Localization for surgical level Comparison: None available Findings: Single crosstable lateral view shows a probe pointing to the level of the pedicles of L4. Signed by: Dr. Chiki Ocampo DO on 05/25/2018 11:03 AM
[2018-05-25] MEDS ORDERED: FENTANYL CITRATE/PF 100MCG/2 ML INJ ONE (13:33)
--- NOTE | 2018-05-25 14:26 | NUR ---
RECEIVED PATIENT FROM PACU, PATIENT IS ALERT AND ORIENTED, DRY DRESSING INTACT ON LOWER BACK, PATIENT SELF AMBULATORY WITHOUT ASSISTANCE WITH UNSTEADY GATE, WALKER ACQUIRED FOR PATIENT SAFETY, PATIENT SHOWS NO SIGN(S) OF DISTRESS.
[2018-05-25] MEDS ORDERED: SUCCINYLCHOLINE 200 MG/10 ML SYR ONE (14:43)
[2018-05-25] MEDS ORDERED: ONDANSETRON HCL INJ 2MG/ML 2ML 2 MG/ML VIAL ONE (14:43)
[2018-05-25] MEDS ORDERED: ROCURONIUM BROMIDE 10 MG/ML 5ML VIAL ONE (14:43)
[2018-05-25] MEDS ORDERED: DEXAMETHASONE SOD PHOS INJ 4 MG/ML VIAL ONE (14:43)
[2018-05-25] MEDS ORDERED: SEVOFLURANE INHAL SOLN 250 ML PEN BTL ONE (14:43)
[2018-05-25] MEDS ORDERED: PROPOFOL IV EMULSION 10 MG/ML 20 ML VIAL ONE (14:43)
[2018-05-25] MEDS ORDERED: LIDOCAINE HCL 2% LOCAL INJ 5 ML SDV VIAL INJ ONE (14:43)
[2018-05-25 15:22] VITALS: BP 135/65
[2018-05-25 16:03] VITALS: BP 135/65
[2018-05-25] MEDS: LACTATED RINGER'S 1,000 ML IV SCH (16:26)
[2018-05-25] MEDS: CEFAZOLIN SOD 1 GM/NS 50ML 50 ML IV SCH (16:26)
--- NOTE | 2018-05-25 17:00 | Operative Report ---
DATE OF PROCEDURE: 05/25/2018 SURGEON: Rolan Hardy MD PREOPERATIVE DIAGNOSIS: Right L4-L5 foraminal stenosis and chronic intraforaminal disk herniation with L4 radiculopathy, M51.16. POSTOPERATIVE DIAGNOSIS: Right L4-L5 foraminal stenosis and chronic intraforaminal disk herniation with L4 radiculopathy, M51.16. PROCEDURES: Right L4-L5 lateral foraminotomy, partial facetectomy, and microsurgical diskectomy, 99785. ANESTHESIA: General. PROCEDURE IN DETAIL: After induction of general anesthesia, the patient was placed on the operating table in prone position over a José Manuel frame. The lumbar region was prepped and draped in sterile fashion. A preoperative x-ray was obtained and a small paramedian incision was created, the lumbar fascia was opened to the right of midline and a subperiosteal dissection was carried out to expose the right side of the L4 lamina, the superior aspect of the L4-L5 hypertrophic facet joint and the lateral aspect of the pars interarticularis of the L4. Second x-ray confirming correct localization below the L4 pedicle. The operating microscope was brought in. Retraction was maintained with expandable speculum retractor. A high speed drill equipped with 4 mm jaquelin bur was used to drill the lateral aspect of the pars interarticularis of L4 and superior lateral aspect of the inferior articular process of L4. This exposed the superior tip of the superior articular process of the L5, which was then drilled down as well. The ligamentum flavum which was hypertrophic within the L4 neural foramen was then resected and the L4 nerve root was exposed just below the L4 pedicle. The interforaminal chronic disk herniation came into view under the L4 nerve root. The epidural veins in this region were bipolar coagulated and divided with micro scissors. The #11 blade was used to incise the capsule of the disk and the disk material was retrieved and removed with a micropituitary rongeur. A ball probe was used to probe medially and laterally and additional fragments of chronically herniated disk were retrieved and removed. The L4 nerve root had become fully compressed at this stage. The wound was copiously irrigated with bacitracin solution and a small piece of fat was harvested from the subcutaneous compartment and placed over the nerve root. The wound was then closed with 0 and 2-0 Vicryl sutures and the skin was closed with 3-0 Monocryl sutures in subcuticular fashion. Steri-Strips and dressing were applied. The patient was awakened, extubated, and taken to postanesthesia care unit in a stable condition. No intraoperative complications were encountered. Estimated blood loss was 10 mL. Rolan Hrady MD PP/JASON /[id number]
--- NOTE | 2018-05-25 19:30 | NUR ---
Got report from previous nurse. Call light within reach.
[2018-05-25 19:54] VITALS: BP 135/65
[2018-05-25 20:00] VITALS: BP 131/60
--- NOTE | 2018-05-25 20:14 | NUR ---
Patient is A&Ox3. Call light within reach. NO pain or distress noted.
[2018-05-25] MEDS ORDERED: ZOLPIDEM TARTRATE 5 MG TAB PO PRN (21:00)
[2018-05-26] VITALS: BP 130/61
[2018-05-26] MEDS: CEFAZOLIN SOD 1 GM/NS 50ML 50 ML IV SCH (00:47)
[2018-05-26 00:56] VITALS: BP 130/61
[2018-05-26 04:00] VITALS: BP 114/57
[2018-05-26] MEDS: LACTATED RINGER'S 1,000 ML IV SCH (06:25)
--- NOTE | 2018-05-26 07:01 | NUR ---
Gave report to oncoming nurse. Patient in bed. Patient in no pain or distress. call light within reach.
[2018-05-26] MEDS ORDERED: NORCO 7.5-3251 EACH PO (07:52)
[2018-05-26 08:53] VITALS: BP 129/58
[2018-05-26] MEDS ORDERED: METOPROLOL SUCCINATE 50 MG TAB XL PO SCH (09:00)
[2018-05-26] MEDS ORDERED: OYST-CAL-D 500MG TABLET PO SCH (09:00)
[2018-05-26] MEDS ORDERED: NON-FORMULARY MEDICATION (Amlodipine Besylate 2.5 MG) PO SCH (09:00)
[2018-05-26] MEDS ORDERED: VITAMIN D3 PO SCH (09:00)
[2018-05-26] MEDS ORDERED: AMLODIPINE BESYLATE 5 MG TAB PO SCH (09:00)
[2018-05-26] MEDS ORDERED: CIT PO SCH (09:00)
[2018-05-26] MEDS ORDERED: CALCIUM CARB PO SCH (09:00)
[2018-05-26] MEDS ORDERED: METOPROLOL SUCCINATE 25 MG TAB XL PO SCH (09:00)
[2018-05-26 12:01] VITALS: BP 148/67
--- NOTE | 2018-05-26 12:15 | NUR ---
Pt wheeled out this time via wheelchair with 1 assist. Pt in stable condition, no c/o pain. Resp WNL. A&O x4. Daughter with pt. Dressing removed from incision site on lower medial back. Site clean and dry, no redness or swelling to site noted.
--- NOTE | 2018-05-26 16:20 | NUR ---
SOCIAL WORK INITIAL ASSESSMENT Lozenge Maker Helper to bedside to discuss plan of care with patient/family. CM/SW role and care transitions discussed. Anticipated discharge plan discussed along with duration of care. CM/SW discussed patients right to make decisions in care. CM/SW work hours given. Patient lives: IN [facility] Admit/Transfer: VIA ED POA/Emergency contact: DAUGHTER FRANCOIS YANG [phone] Current/Previous Home Health: NONE PCP/Follow-up Care: [facility] Current/Previous DME: WALKER BUT DOESNT USE Other Services: NONE Employment Status: RETIRED Areas of Concerns: NONE Referral Needs: NONE Education Needs: NONE IMM/COREAS given and signed (if applicable): COREAS Goal for discharge: RETURN HOME CM/SW left business card at the bedside with contact information. Name and number was also written on the patients whiteboard. Patient verbalized understanding of discussion. CM will follow-up with ongoing discharge and transition of care needs.
== END 2018-05-26 12:17 | disposition home or self-care (01) ==
LOC: OR 06:38 → PACU V 10:13 → IMCU 14:46
PROVIDERS: ADMIT Neurological Surgery; ATTEND Neurological Surgery
DX: M51.16 Intervertebral disc disorders with radiculopathy, lumbar region (principal); M19.90 Unspecified osteoarthritis, unspecified site; I12.9 Hypertensive chronic kidney disease with stage 1 through stage 4 chronic kidney disease, or unspecified chronic kidney disease; N18.9 Chronic kidney disease, unspecified
CPT/HCPCS: 36415; 63056; 71046; 72020; 80048; 85025; 85610; 85730; 86850; 86900; 88304; 88311; 93005; G0378 ×2; J0690 ×2; J1100; J2001; J2175; J2405; J2704; J7121 ×2

== ENCOUNTER 2019-04-27 11:13 | Inpatient (IN) | payer MEDICARE ==
[~2019-04-27] VITALS: Ht 157.5 cm; Wt 69.4 kg
[~2019-04-27 11:13] MED LIST changes: +ALENDRONATE SOD70 MG; -BACITRACIN 50,000 UNIT VIAL ONE; -BUPIVACAINE 0.5%/EPI 30 ML SDV INJ ONE; -GELATIN SPONGE 12-7MM ONE; +NORCO 7.5-3251 EACH PO; +SODIUM POLYSTY454 GM; -THROMBIN FOR SOLN 5,000 UNIT VIAL ONE; +ULTRAM50 MG PO
[2019-04-27] MEDS ORDERED: DILTIAZEM HCL 5 MG/ML 5 ML VIAL IV STA (11:43)
[2019-04-27] MEDS ORDERED: ASPIRIN 81 MG CHEW TAB PO ONE (11:45)
[2019-04-27 12:33] LABS: BASOPHILS % 0.7 % (0.0-1.0); EOSINOPHILS % 0.6 % (0.0-6.0); HEMATOCRIT 33.7 % (34.2-44.1); HEMOGLOBIN 10.6 g/dL (12.0-16.0); LYMPHOCYTES # (AUTO) 0.6 (1.0-3.2); LYMPHOCYTES % 10.4 % (18.0-39.1); MEAN CORPUSCULAR HEMOGLOBIN 29.4 pg (28-32); MEAN CORPUSCULAR HGB CONC 31.5 g/dL (31-35); MEAN CORPUSCULAR VOLUME 93.6 fL (81-99); MONOCYTES # (AUTO) 0.4 (0.2-0.8); NEUTROPHILS # (AUTO) 4.3 (2.1-6.9); NEUTROPHILS % 79.9 % (38.7-80.0); PLATELET COUNT 188 x10e3/uL (140-360); RED CELL DISTRIBUTION WIDTH 12.6 % (11.7-14.4)
[2019-04-27 12:40] LABS: INR 1.05; PROTHROMBIN TIME 14.3 seconds (11.9-14.5)
[2019-04-27 12:41] LABS: PARTIAL THROMBOPLASTIN TIME 29.5 seconds (23.8-35.5)
--- NOTE | 2019-04-27 12:48 | Diagnostic Imaging Report ---
Chest, 1 view, 04/27/2019. History: Shortness of breath. Comparison: 05/23/2018. Findings: The cardiomediastinal silhouette and pulmonary vasculature are mildly prominent. There is no focal consolidation or pleural effusion. Linear opacity is present in the left lung base. There are no acute osseous or soft tissue abnormalities. Impression: Mild cardiomegaly and vascular congestion with left basilar atelectasis. Signed by: Zack Rodriguez on 04/27/2019 12:45 PM
[2019-04-27 12:53] LABS: ALBUMIN 3.5 g/dL (3.5-5.0); ALBUMIN/GLOBULIN RATIO 1.2 (0.8-2.0); ANION GAP 18.7 mmol/L (8-16); CALCIUM 8.8 mg/dL (8.4-10.2); CREATININE, SERUM 1.63 mg/dL (0.57-1.11); POTASSIUM 4.7 mmol/L (3.5-5.1)
[2019-04-27 13:02] LABS: CREATINE KINASE MB 1.5 ng/mL (0-5.0)
[2019-04-27] MEDS ORDERED: ONDANSETRON HCL INJ 2MG/ML 2ML 2 MG/ML VIAL IV PRN (14:00)
[2019-04-27] MEDS ORDERED: DILTIAZEM HCL 60 MG TAB PO SCH (14:00)
[2019-04-27] MEDS ORDERED: HEPARIN SOD (PORCINE) 5,000 UNIT/ML VIAL IV ONE (15:00)
[2019-04-27] MEDS ORDERED: HEPARIN 25,000 UNIT 700 UNIT in DEXTROSE 5% 250ML 250 ML IV SCH (15:00)
[2019-04-27 17:08] VITALS: BP 152/96
--- NOTE | 2019-04-27 17:15 | NUR ---
The pt. was received from the ER with reported A fib. Upon arrival to the unit the records shows A Fib R VR and the pt. denies chest pain but does admit to difficulty when breathing when she feels palpitations. She arrived with tele intact #6 and current rhythm is A fib at 105.
[2019-04-27 17:50] VITALS: BP 152/96
[2019-04-27 19:28] VITALS: BP 135/81
[2019-04-27 20:07] VITALS: BP 135/81
[2019-04-27] MEDS: FUROSEMIDE INJ 10 MG/ML 4 ML VIAL IV SCH (21:00)
[2019-04-27 21:12] LABS: CREATINE KINASE MB 1.5 ng/mL (0-5.0)
--- NOTE | 2019-04-27 21:35 | NUR ---
Pt refused lasix. Wants to talk to provider tomorrow regarding the medication.
--- NOTE | 2019-04-27 23:01 | Consultation ---
DATE OF CONSULTATION: Cardiology Consult HISTORY OF PRESENT ILLNESS: Rneny Espino is an 83-year-old female with primary history of hypertension, anemia, adenocarcinoma of the cervix, history of renal failure secondary to pyelolithiasis, gout, arthritis, history of pericardial effusion, admitted, complaining of palpitations associated with shortness of breath, swelling of the lower extremities and generalized weakness that started about two weeks ago and two days prior to admission, symptoms has worsened. The patient denies any chest pain or dizziness. Family also reports that the patient did have irregular and fast heart rate about 10 years ago. MEDICAL HISTORY: As mentioned above. PAST SURGICAL HISTORY: Hysterectomy, cholecystectomy, back surgery, left hip replacement, cataract implants, carpal tunnel surgery, section. FAMILY HISTORY: CAD, sister. No diabetes in the family. SOCIAL HISTORY: Quit smoking in 66, occasional EtOH use. MEDICATIONS: The patient is currently takin. Metoprolol succinate 50 mg daily. 2. Also taking furosemide 20 mg daily. 3. Lisinopril 10 mg daily. 4. Citracal plus D3 250-107-500 mg daily. 5. Also taking alendronate sodium 70 mg once a week. ALLERGIES: ASPIRIN, ANTIHISTAMINE, MORPHINE AND CODEINE. PHYSICAL EXAMINATION: VITAL SIGNS: Includes 133/80 blood pressure, heart rate of 92 with atrial fibrillation, 100% on room air, respirations 20, 97.8 temperature. GENERAL: The patient is well-developed, well-nourished, no acute respiratory distress. SKIN: Normal in appearance, texture, and temperature. Warm and dry. HEENT: The patient's cranium is normocephalic, atraumatic. Pupils are equally round, reactive to light and accommodation. Sclerae nonicteric. Ears are normal. Mucosa is moist. Throat is clear. NECK: Supple. Full range of motion. No cervical lymphadenopathy. No thyromegaly. No bruits. No JVD. RESPIRATORY: Normal respiratory effort. LUNGS: Clear to auscultation bilaterally. No wheezing. No rhonchi or rales heard. CARDIOVASCULAR: S1 and S2 audible. Irregular rate and rhythm. GI: Soft, nontender, nondistended. Bowel sounds are present. EXTREMITIES: +1 to 2 pitting edema on the left lower extremity and trace to the right lower extremity. NEUROLOGIC: Motor and sensory examination of the upper and lower extremities is normal. Reflexes are normal and symmetrical bilaterally. ASSESSMENT: The patient is an 83-year-old female admitted for atrial fibrillation with RVR with heart rates to the 120s to 130s. The patient was given Cardizem at the ED, however, remains on atrial fibrillation, now with controlled heart rate 80s to 90s. PLAN: 1. Telemetry and hemodynamic monitoring. 2. Start on anticoagulation, Eliquis and antiarrhythmic. Also continue on beta arie, ABRIL inhibitors, diuretic furosemide 40 mg b.i.d. 3. May need EP consult if arrhythmia is not responsive to pharmacy. 4. Do repeat echocardiogram. Thank you for this consultation. We will continue to follow. Dictated by Мария Anderson NP MD EMILY Hunter/JASON /[id number]
[2019-04-27 23:10] VITALS: BP 124/99
--- NOTE | 2019-04-28 02:06 | NUR ---
Ptt result is within therapeutic level. No change for heparin drip.
[2019-04-28 04:15] VITALS: BP 143/102
[2019-04-28 06:53] LABS: BASOPHILS % 0.5 % (0.0-1.0); EOSINOPHILS # (AUTO) 0.1 (0.0-0.4); EOSINOPHILS % 2.2 % (0.0-6.0); HEMATOCRIT 32.1 % (34.2-44.1); LYMPHOCYTES # (AUTO) 0.6 (1.0-3.2); MEAN CORPUSCULAR HEMOGLOBIN 29.2 pg (28-32); MEAN CORPUSCULAR HGB CONC 31.2 g/dL (31-35); MEAN CORPUSCULAR VOLUME 93.9 fL (81-99); MONOCYTES # (AUTO) 0.5 (0.2-0.8); MONOCYTES % 12.5 % (4.4-11.3); NEUTROPHILS # (AUTO) 2.8 (2.1-6.9); NEUTROPHILS % 69.3 % (38.7-80.0); PLATELET COUNT 156 x10e3/uL (140-360); RED BLOOD COUNT 3.42 x10e6/uL (3.6-5.1); RED CELL DISTRIBUTION WIDTH 12.9 % (11.7-14.4)
[2019-04-28 07:22] LABS: ALBUMIN 3.2 g/dL (3.5-5.0); ALBUMIN/GLOBULIN RATIO 1.2 (0.8-2.0); ANION GAP 16.2 mmol/L (8-16); CALCIUM 8.6 mg/dL (8.4-10.2); CREATININE, SERUM 1.44 mg/dL (0.57-1.11); POTASSIUM 4.2 mmol/L (3.5-5.1)
[2019-04-28 07:28] VITALS: BP 140/95
[2019-04-28 07:32] LABS: CREATINE KINASE MB 1.6 ng/mL (0-5.0)
--- NOTE | 2019-04-28 07:40 | NUR ---
PATIENT IS AWAKE, ALERT, AND IN STABLE CONDITION WITH NO S/S OF RESPIRATORY DISTRESS- NO PAIN VOICED. TELEMETRY APPLIED. BED ALARM APPLIED. WALKER AVAILABLE FOR PATIENT IN ROOM. CALL LIGHT IS WITHIN REACH, PATIENT INSTRUCTED TO CALL FOR ASSISTANCE NEEDED
[2019-04-28 08:00] VITALS: BP 140/95
[2019-04-28] MEDS: FUROSEMIDE INJ 10 MG/ML 4 ML VIAL IV SCH ×2 (08:57→21:00)
[2019-04-28] MEDS ORDERED: CLOPIDOGREL BISULFATE 75 MG TAB PO SCH (09:00)
--- NOTE | 2019-04-28 09:40 | NUR ---
PATIENT'S PTT IS 74.5 - NO CHANGE ON RATE REQUIRED. CURRENT HEPARIN RATE IS 7CC/HR. DAILY PTT ORDER PLACED FOR TOMORROW, 04/29/19.
[2019-04-28] MEDS: METOPROLOL TARTRATE 25 MG TAB PO SCH ×2 (10:59→17:20)
[2019-04-28] MEDS: LISINOPRIL 10 MG TAB PO SCH (11:00)
[2019-04-28 11:14] VITALS: BP 159/70
[2019-04-28 14:35] LABS: CREATINE KINASE MB 1.7 ng/mL (0-5.0)
[2019-04-28 15:04] VITALS: BP 126/72
--- NOTE | 2019-04-28 17:05 | History and Physical ---
CHIEF COMPLAINT: Palpitation and atrial fibrillation with rapid rate. ON CALL PHARMACY TECHNICIAN: Dr. Vidal Castro. PRIMARY CARE PHYSICIAN: Dr. Walt Torres. HISTORY OF PRESENT ILLNESS: The patient is an 83-year-old female with cardiomyopathy, ejection fraction approximately 25% or less. The patient basically came into the hospital with increasing shortness of breath and atrial fibrillation with rapid heart rate. The patient is otherwise stable. She did not have any chest pain. She has had left lower extremity swelling. The patient is unclear about her medication. She was told that she needed to drink plenty of water. She is drinking approximately 6 to 8 large glasses a day and she gained approximately 4 to 5 pounds for the past few weeks. The patient is otherwise stable at this time. PAST MEDICAL HISTORY: Congestive heart failure, ejection fraction less than 25%, hypertension, chronic kidney failure, chronic anemia, cervical adenocarcinoma with history of hysterectomy previously. PAST SURGICAL HISTORY: Hysterectomy, cholecystectomy, low back surgery, left hip replacement, cataract surgery, implant, carpal tunnel surgery, and . SOCIAL HISTORY: The patient does not smoke or use alcohol. No regular drug. ALLERGIES: MULTIPLE ALLERGIES INCLUDING ANTIHISTAMINE, PLASTIC, ASPIRIN, CODEINE, MORPHINE, AND NSAID. HOME MEDICATIONS: The patient will bring in the whole bag of medication for review. Current list is incorrect. PHYSICAL EXAMINATION: VITAL SIGNS: Temperature is 97, blood pressure 140/95, pulse rate is 103, and respirations 18. GENERAL: The patient is not in acute distress. She is awake. HEENT: Normocephalic and atraumatic. Anicteric. NECK: Supple grossly. PULMONARY: Diminished breath sounds at bases with some rales. CARDIOVASCULAR: Atrial fibrillation, slightly elevated rate. ABDOMEN: Soft. EXTREMITIES: Trace edema. The patient has been receiving furosemide IV. NEUROLOGIC: No focal deficit. LABORATORY DATA: WBC 5.4, hemoglobin 10.6, hematocrit 33.7, and platelets 188. Chemistry; sodium 140, potassium 4.2, chloride 107, bicarb 21, BUN 42, creatinine 1.4, and glucose is 85. Cardiac enzymes are negative. Liver enzymes slightly elevated. AST is 47 and ALT 81. BNP 1495. A chest x-ray, there is some vascular congestion. IMPRESSION: 1. Eqkkx-ap-potcduv systolic dysfunction, congestive heart failure. 2. Atrial fibrillation with rapid ventricular rate response. 3. Multiple baseline problems. PLAN: Continue with diuresis. Anticoagulant therapy. Home medication will be reviewed once bottle obtained. We will continue current management. The patient may need EP evaluation. She may be going home with a LifeVest with possible ICD placement in the future, but that will be discussed with the patient by EP sap consultant. At this time, we will continue to manage the patient's symptoms and diurese the patient along with controlling the heart rate. MD ILDEFONSO Schaeffer/MODL /[id number]
[2019-04-28] MEDS: APIXAB 2.5 MG TABLET PO SCH (17:12)
--- NOTE | 2019-04-28 19:05 | NUR ---
PATIENT IN STABLE CONDITION WITH NO S/S OF RESPIRATORY DISTRESS- NO PAIN VOICED. TELEMETRY APPLIED. DAUGHTER PRESENT IN ROOM. BED ALARM APPLIED. CALL LIGHT IS WITHIN REACH, PATIENT INSTRUCTED TO CALL FOR ASSISTANCE NEEDED. BEDSIDE SHIFT REPORT GIVEN TO ONCOMING NURSE.
--- NOTE | 2019-04-28 19:22 | NUR ---
RECEIVED REPORT FROM 7AM NURSE, ROUNDS DONE, CALL LIGHT REMAIN IN REACH. WILL CONTINUE TO MONITOR.
[2019-04-28 20:00] VITALS: BP 122/67
--- NOTE | 2019-04-28 20:31 | Consultation ---
DATE OF CONSULTATION: 04/28/2019 ADDENDUM: After discussion with Dr. Castro, it appears that the left atrial size is severely enlarged, highly unlikely for her to stay in normal sinus rhythm after cardioversion or ablation. Therefore, plan will change to BIV-ICD implantation and AV node ablation, especially due to the fact that her low EF has been longstanding. In summary, we will set up for BIV-ICD implant and AV node ablation as an outpatient. MD BENNY Howell/JASON /[id number]
--- NOTE | 2019-04-28 20:36 | Consultation ---
DATE OF CONSULTATION: 04/28/2019 REASON FOR CONSULTATION: Atrial fibrillation and cardiomyopathy. HISTORY OF PRESENT ILLNESS: Ms. Espino is a pleasant 83-year-old woman with no significant past cardiac history except for a pericardial window in the past and uterine cancer, which was related. About a month ago, she started to have palpitations, which was one episode that happened while in [place] and did not last long. She came in yesterday with shortness of breath and palpitations. She was found to be in atrial fibrillation, heart rate of 120. EF confirmed left atrial enlargement and EF of 25% to 30%. EP has been consulted. PAST MEDICAL HISTORY: Palpitations, hypertension, uterine cancer, pericardial window, atrial fibrillation, cardiomyopathy, left atrial enlargement, and trace aortic insufficiency. SOCIAL HISTORY: The patient lives by herself. Daughter is involved in the care. No drugs or smoking. FAMILY HISTORY: Negative for sudden or atrial fibrillation. REVIEW OF SYSTEMS: As above, otherwise negative for fevers, chills, loss of vision or blurry vision, ear pain, ear discharge, headache, or numbness. Positive for chest pain and palpitation. Negative for cough, sputum, nausea, vomiting, dysuria, frequency, rash, bruise, bleeding, clots, anxiety, depression, heat or cold intolerance. PHYSICAL EXAMINATION: VITAL SIGNS: Blood pressure 120/78, heart rate is 110 beats per minute. GENERAL: The patient is lying in bed, in no apparent distress. NECK: No lymphadenopathy. Thyroid exam is normal. CARDIOVASCULAR: S1 and S2. LUNGS: Clear bilaterally. ABDOMEN: Soft, benign. EXTREMITIES: Warm and dry. NEURO: Nonfocal. SKIN: No new rash. PSYCH: No anxiety or depression. IMAGING DATA: EKG shows atrial fibrillation, now with QRS. Echo shows EF of 25% to 30%, left atrial enlargement. ASSESSMENT AND PLAN: An 83-year-old woman with new onset atrial fibrillation, cardiomyopathy, most likely tachycardia-induced. She is very symptomatic. I will discuss with Dr. Castro. I will recommend starting on amiodarone. NOAC, blood thinner and DC cardioversion after a MORALES on Tuesday. We will set them up for an outpatient EP study and ablation for permanent treatment of atrial fibrillation, especially due to the fact that she is highly symptomatic and she goes into cardiomyopathy and congestive heart failure. I discussed with her and also to her daughter on the phone. In summary, recommend MORALES cardioversion on Tuesday. Start and continue amiodarone and Xarelto. We will set up for EP study and ablation, possibly Watchman and left atrial appendage closure as an outpatient, especially since she uses a walker and has had history of falls. MD BENNY Howell/JASON /[id number]
[2019-04-29] VITALS (11 sets, daily range): BP systolic 96–128; BP diastolic 57–93
[2019-04-29 07:05] LABS: ANION GAP 15.8 mmol/L (8-16); CALCIUM 8.5 mg/dL (8.4-10.2); CREATININE, SERUM 1.41 mg/dL (0.57-1.11); POTASSIUM 3.8 mmol/L (3.5-5.1)
--- NOTE | 2019-04-29 07:12 | NUR ---
ROUNDS DONE, REPORT GIVEN TO 7AM NURSE, NO COMPLAINTS VOICED, REMAIN ON TELEMETRY. CALL LIGHT REMAIN IN REACH.
--- NOTE | 2019-04-29 07:15 | NUR ---
PATIENT IS IN STABLE CONDITION WITH NO S/S OF RESPIRATORY DISTRESS- PATIENT DENIES PAIN. TELEMETRY APPLIED. BED ALARM APPLIED. CALL LIGHT IS WITHIN REACH OF PATIENT- PATIENT INSTRUCTED TO CALL FOR ASSISTANCE NEEDED.
[2019-04-29 07:28] LABS: MAGNESIUM 1.8 MG/DL (1.3-2.1); PHOSPHORUS 2.9 MG/DL (2.3-4.7)
[2019-04-29 07:48] LABS: THYROID STIMULATING HORMONE 1.839 uIU/mL (0.350-4.940)
[2019-04-29] MEDS: FUROSEMIDE INJ 10 MG/ML 4 ML VIAL IV SCH ×2 (08:15→20:39)
[2019-04-29] MEDS: APIXAB 2.5 MG TABLET PO SCH ×2 (08:15→16:40)
[2019-04-29] MEDS: LISINOPRIL 10 MG TAB PO SCH (08:17)
[2019-04-29] MEDS: METOPROLOL TARTRATE 25 MG TAB PO SCH ×2 (08:17→16:41)
--- NOTE | 2019-04-29 16:38 | NUR ---
PATIENT REFUSED THE BED ALARM TO BE APPLIED.
--- NOTE | 2019-04-29 19:05 | NUR ---
walking rounds complete, pt alert resp even and no c/o pain when asked, call light in reach. family member at bedside.
--- NOTE | 2019-04-29 19:24 | NUR ---
PATIENT IS IN STABLE CONDITION WITH NO S/S OF RESPIRATORY DISTRESS. NO PAIN VOICED. TELEMETRY APPLIED. PATIENT WILL BE NPO AFTER MIDNIGHT FOR STRESS TEST- WILL SIGN THE CONSENT. DAUGHTER PRESENT IN ROOM. BED ALARM APPLIED. CALL LIGHT IS WITHIN REACH OF PATIENT- PATIENT INSTRUCTED TO CALL FOR ASSISTANCE NEEDED. BEDSIDE SHIFT REPORT GIVEN TO ONCOMING NURSE.
[2019-04-30] VITALS (7 sets, daily range): BP systolic 104–143; BP diastolic 60–85
--- NOTE | 2019-04-30 02:35 | NUR ---
pt assist to restroom, no SOB indicated, no distress noted.
--- NOTE | 2019-04-30 07:16 | NUR ---
bedside rounding, complete , pt stable at shift change.
[2019-04-30] MEDS: APIXAB 2.5 MG TABLET PO SCH ×2 (08:47→17:25)
[2019-04-30] MEDS: METOPROLOL TARTRATE 25 MG TAB PO SCH ×2 (09:00→17:25)
--- NOTE | 2019-04-30 09:29 | NUR ---
patient off the unit for Stress test, stable
[2019-04-30] MEDS ORDERED: REGADENOSON 0.4 MG/5 ML SYR IV ONE (10:33)
[2019-04-30] MEDS: LISINOPRIL 10 MG TAB PO SCH (16:10)
--- NOTE | 2019-04-30 19:27 | NUR ---
Received bedside report from day nurse. Patient resting in bed, no s/s of distress or c/o pain at this time. All safety measures in place. Will continue to monitor.
--- NOTE | 2019-04-30 20:45 | Operative Report ---
DATE OF PROCEDURE: 04/30/2019 SURGEON: Vidal Castro MD PROCEDURE: Lexiscan nuclear stress test. TECHNIQUE: The patient was given 11 mCi of Myoview. Resting images were obtained in the horizontal long axis, vertical long axis, and short axis. The patient was then hooked up to the EKG machine. Lexiscan was infused over 15 seconds. During Lexiscan infusion, the patient had no chest pain and no EKG changes. The patient was given 32.3 mCi of Myoview immediately after Lexiscan infusion. Stress images were obtained in the horizontal long axis, vertical long axis, and short axis. The results as follows: 1. The resting EKG demonstrated atrial fibrillation with nonspecific ST and T-wave changes. 2. There were no EKG changes and no symptoms during Lexiscan infusion. 3. There was normal perfusion to all segments of the myocardium in both stress and rest. 4. The left ventricle was dilated. There was severe global hypokinesis with an ejection fraction of 15%. CONCLUSION: The patient has an enlarged left ventricle with severe global left ventricular dysfunction and an ejection fraction of 15%. There is no evidence of myocardial ischemia. Vidal Castro MD [facility]/MODL /[id number]
[2019-05-01] VITALS (8 sets, daily range): BP systolic 94–120; BP diastolic 56–87
--- NOTE | 2019-05-01 07:02 | NUR ---
Bedside report given to day nurse. Patient awake and resting in bed, no s/s of distress or c/o pain at this time. All safety measures in place.
[2019-05-01] MEDS: APIXAB 2.5 MG TABLET PO SCH ×2 (08:21→17:20)
[2019-05-01] MEDS: FUROSEMIDE 40 MG TAB PO SCH (08:21)
[2019-05-01] MEDS: METOPROLOL TARTRATE 25 MG TAB PO SCH ×2 (10:18→17:21)
--- NOTE | 2019-05-01 10:39 | NUR ---
Called [facility] customer care, required information faxed over, awaiting their reply.
[2019-05-01] MEDS: LISINOPRIL 10 MG TAB PO SCH (11:50)
--- NOTE | 2019-05-01 15:22 | NUR ---
Faxed X4 documents to [employer] , Talked to personnel there, they said they need the Medical record sign by the MD before they deliver Life vest and they will fax over the form here, Notified Dr Ga he said he will sign that tomorrow AM.
--- NOTE | 2019-05-01 19:12 | NUR ---
Received bedside report from day nurse. Patient awake and sitting up in bed, no s/s of distress or c/o pain at this time. All safety measures in place. Will continue to monitor.
[2019-05-02 00:15] VITALS: BP 129/70
--- NOTE | 2019-05-02 00:21 | NUR ---
Informed by tele that patient had 6 beats of V-tach. Patient in restroom. In stable condition, no s/s of distress or c/o pain. Assisted patient back to bed via walker. Now running afib @ 87. All safety measures in place. Will continue to monitor.
[2019-05-02 04:15] VITALS: BP 113/71
--- NOTE | 2019-05-02 06:25 | NUR ---
Informed by tele that patient had 18 beats of v-tach. Patient sleeping in bed, no s/s of distress or c/o pain, denies needs at this time. Tele monitor showing sinus tach @ 91. Paged Dr. Stuart Castro, awaiting return call at this time. Will continue to monitor patient.
--- NOTE | 2019-05-02 07:00 | NUR ---
Bedside report given to day nurse. Patient awake and resting in bed, no s/s of distress at this time. All safety measures in place.
--- NOTE | 2019-05-02 07:40 | NUR ---
The pt. is in bed awake and alert. Dr Ga visited and the pt. can go home after the life vest is placed. The ordered that the inpatient pharmacist sign the order for the vest.
[2019-05-02 07:46] VITALS: BP 141/76
--- NOTE | 2019-05-02 08:00 | NUR ---
Dr. Leatha Camarillo was notified that the pt. had 18 beats of v fib during the previous shift and no orders were received.
[2019-05-02 09:02] VITALS: BP 141/76
[2019-05-02] MEDS ORDERED: ONDANSETRON HCL 4 MG ORAL DISINTEGRATING TAB PO PRN (09:15)
[2019-05-02] MEDS: APIXAB 2.5 MG TABLET PO SCH ×2 (09:16→17:00)
[2019-05-02] MEDS: FUROSEMIDE 40 MG TAB PO SCH (09:17)
[2019-05-02] MEDS: METOPROLOL TARTRATE 25 MG TAB PO SCH ×2 (09:19→17:00)
[2019-05-02] MEDS: LISINOPRIL 10 MG TAB PO SCH (09:20)
--- NOTE | 2019-05-02 10:00 | NUR ---
The person is here for life vest and stated that the attending needs to sign the order for the vest. He was provided the number for Dr. Ga and he communicated with him and we continue to wait for the life vest.
[2019-05-02 11:35] VITALS: BP 114/84
--- NOTE | 2019-05-02 13:38 | NUR ---
Nutrition Screen Note RD Recommendation for Physician: -Continue current diet per MD. Plan of Care: RD following, monitoring for tolerance and adequacy. Education provided. Nutrition reason for involvement: (LOS) Primary Diagnose(s): Afib with RVR PMH: Palpitations, hypertension, uterine cancer, pericardial window, atrial fibrillation, cardiomyopathy, left atrial enlargement, and trace aortic insufficiency. Ht: 62 in Wt: 153 lb BMI: 28.0 kg/m2 IBW: [address] Assessment: (05/02: 83 YOF admitted for afib with PMH listed above. The pt reported her appetite was good, a finished meal was sitting in front of her. She denied N/V/C/D/chewing ors wallowing issues as well as any food allergies. She did state she reacts to some foods that have the medications she is allergic to in them, but she can self select food for herself regarding her tolerance and does not want anything changed in her chart. The pt was open to receiving education regarding low Na diet and reported she typically follows a low na diet at home. Chart reviewed. Labs and meds reviewed. Pending d/c today. Will continue to monitor. Current Diet: cardiac Malnutrition Evaluation 05/02 The patient does not meet criteria for a specified degree of malnutrition at this time. Will re-evaluate at follow-up as appropriate. Diet Education Needs Assessment: Diet education indicated, Diet Adequacy: Meeting calorie needs, Meeting protein needs Learner(s): pt Barriers: none Cultural/Language Modifications: none Readiness: acceptance Method: discussion, handout Topics: Low Na Diet Understanding/Compliance: verbalized understanding, anticipate good compliance Nutrition Care Level: low
[2019-05-02 16:12] VITALS: BP 109/65
--- NOTE | 2019-05-02 17:06 | EXERCISE STRESS TEST ---
DATE OF STUDY: 04/29/2019 11:08:00 Stress Test - Treadmill ONLY PROCEDURE: Lexiscan nuclear stress test. TECHNIQUE: The patient was given 11 mCi of Myoview. Resting images were obtained in the horizontal long axis, vertical long axis, and short axis. The patient was then hooked up to the EKG machine. Lexiscan was infused over 15 seconds. During Lexiscan infusion, the patient had no chest pain and no EKG changes. The patient was given 32.3 mCi of Myoview immediately after Lexiscan infusion. Stress images were obtained in the horizontal long axis, vertical long axis, and short axis. The results as follows: 1. The resting EKG demonstrated atrial fibrillation with nonspecific ST and T-wave changes. 2. There were no EKG changes and no symptoms during Lexiscan infusion. 3. There was normal perfusion to all segments of the myocardium in both stress and rest. 4. The left ventricle was dilated. There was severe global hypokinesis with an ejection fraction of 15%. CONCLUSION: The patient has an enlarged left ventricle with severe global left ventricular dysfunction and an ejection fraction of 15%. There is no evidence of myocardial ischemia. MD GILBERT Hunter/MODL /[id number]
--- NOTE | 2019-05-02 19:12 | NUR ---
Received bedside report from day nurse. Patient resting in bed, no s/s of distress or c/o pain at this time. Currently waiting for daughter to come pick her up. All safety measures in place. Will continue to monitor.
--- NOTE | 2019-05-02 19:43 | NUR ---
Patient discharged home with Life Vest. In stable condition, no s/s of distress or c/o pain.
== END 2019-05-02 19:36 | disposition home or self-care (01) | DRG 308 ==
LOC: ER 11:13 → ERHOLD 13:48 → MED/SURG3 16:57
PROVIDERS: ADMIT Internal Medicine; ATTEND Internal Medicine
DX: I48.19 Other persistent atrial fibrillation (principal); I50.23 Acute on chronic systolic (congestive) heart failure; K21.9 Gastro-esophageal reflux disease without esophagitis; Z96.642 Presence of left artificial hip joint; Z96.651 Presence of right artificial knee joint; Z88.6 Allergy status to analgesic agent; Z88.5 Allergy status to narcotic agent; I11.0 Hypertensive heart disease with heart failure; Z85.41 Personal history of malignant neoplasm of cervix uteri
CPT/HCPCS: 36415; 71045; 78452; 80048; 80053; 80061; 82550; 82553; 82948; 83735; 83880; 84100; 84443; 84484; 85025; 85610; 85730; 93005; 93017; 93306; 96361; 96366; 99284; A9502; J1644; J1940